=== PATIENT | male | born 1950 | race Hispanic/Latino ===

== ENCOUNTER → 2019-12-29 | Outpatient (CLI) | payer MEDICARE | LOC: RAD 08:45 | PROVIDERS: ATTEND Family Medicine | DX: I87.2 Venous insufficiency (chronic) (peripheral) (principal); I80.02 Phlebitis and thrombophlebitis of superficial vessels of left lower extremity | CPT/HCPCS: 93926; 93971 ==

== ENCOUNTER → 2020-01-13 | Outpatient (CLI) | payer MEDICARE | LOC: RAD 08:24 | PROVIDERS: ATTEND Family Medicine | DX: I87.2 Venous insufficiency (chronic) (peripheral) (principal) | CPT/HCPCS: 93971 ==

== ENCOUNTER 2020-03-15 11:37 | Emergency (ER) | payer MEDICARE ==
[~2020-03-15] VITALS: Ht 167.6 cm; Wt 98.9 kg
[2020-03-15] MEDS ORDERED: OXYMETAZOLINE HCL 0.05% NAS 1 SPRAY BTL ONE (12:15)
[2020-03-15 14:11] VITALS: BP 136/90
== END 2020-03-15 14:13 | disposition home or self-care (01) ==
LOC: ER 11:48
DX: R04.0 Epistaxis (principal); I10 Essential (primary) hypertension; E11.9 Type 2 diabetes mellitus without complications; K21.9 Gastro-esophageal reflux disease without esophagitis; E78.5 Hyperlipidemia, unspecified; M10.9 Gout, unspecified
CPT/HCPCS: 99284